=== PATIENT | female | born 1950 | race African-American/Black ===

== ENCOUNTER 2017-06-21 12:27 | Emergency (ER) | payer MEDICARE ==
[~2017-06-21] VITALS: Ht 152.4 cm; Wt 59.4 kg
[2017-06-21 12:27] VITALS: BP 145/90
[2017-06-21] MEDS ORDERED: ACETAMINOPHEN ES 500 MG TABLET PO ONE (13:30)
[2017-06-21] MEDS ORDERED: ACETAMINOPHEN ES 500 MG TABLET ONE (13:40)
--- NOTE | 2017-06-21 14:45 | NUR ---
EMT BEDSIDE TO SPLINT PT'S R ARM/HAND
== END 2017-06-21 15:20 | disposition home or self-care (01) ==
LOC: ER 12:29
DX: S62.346A Nondisplaced fracture of base of fifth metacarpal bone, right hand, initial encounter for closed fracture (principal); S22.31XA Fracture of one rib, right side, initial encounter for closed fracture; I10 Essential (primary) hypertension; N64.4 Mastodynia; W01.0XXA Fall on same level from slipping, tripping and stumbling without subsequent striking against object, initial encounter; Y93.01 Activity, walking, marching and hiking; Y92.89 Other specified places as the place of occurrence of the external cause; Y99.8 Other external cause status
CPT/HCPCS: 71100-TC; 73130-TC; 73562; A4606; Z7610